=== PATIENT | female | born 1955 | race Caucasian/White ===

== ENCOUNTER 2022-01-17 22:35 | Emergency (ER) | payer MEDICARE, BC ==
[~2022-01-17] VITALS: Ht 154.9 cm; Wt 52.3 kg
[2022-01-18] MEDS ORDERED: LIDOcaine 1% W/epiNEPHrine 1:200,000 10ml vial IJ ONE (00:05)
[2022-01-18] MEDS ORDERED: TETanus/Pertussis (Acell)/Diphther VAC/PF (Tdap-Adult) 0.5ml syringe IMVAC ONE (00:05)
[2022-01-18] MEDS ORDERED: LIDOcaine 1% W/epiNEPHrine 1:100,000 20ml vial IJ ONE (00:10)
[2022-01-18] MEDS ORDERED: AMOX-117 PO (01:06)
[2022-01-18] MEDS ORDERED: amox tr/potassium clavulanate 875/125mg TAB PO ONE (01:35)
[2022-01-18 01:37] VITALS: BP 144/88
== END 2022-01-18 01:43 | disposition home or self-care (01) ==
LOC: ER 22:35
DX: S61.512A Laceration without foreign body of left wrist, initial encounter (principal); Z79.2 Long term (current) use of antibiotics; Z20.3 Contact with and (suspected) exposure to rabies; W54.0XXA Bitten by dog, initial encounter; Y93.89 Activity, other specified; Y92.89 Other specified places as the place of occurrence of the external cause; Y99.8 Other external cause status
CPT/HCPCS: 12002; 90471; 90715; 99283